=== PATIENT | male | born 1950 | race Caucasian/White ===

== ENCOUNTER 2016-08-13 12:51 | Emergency (ER) | payer SELFPAY ==
--- NOTE | 2016-08-13 14:55 | RAD ---
INDICATION: Left upper extremity numbness COMPARISON: None. TECHNIQUE: Noncontrast axial source images were acquired from the skull base to the vertex. FINDINGS: Ventricles/sulci: The ventricles and cisterns are normal in size and configuration for age. Brain parenchyma: There is no focal parenchymal finding, evidence of intracranial mass, or intracranial mass effect. Intracranial hemorrhage:None. Extra-axial spaces: There are no abnormal extra axial fluid collections or evidence of extra-axial mass. Calvarium: There is no calvarial fracture or other calvarial abnormality. Scalp: There is no evidence of scalp or extracalvarial soft tissue abnormality. Paranasal sinuses/mastoid: The paranasal sinuses and mastoid air cells are clear. Other: None. IMPRESSION: No acute intracranial findings
[2016-08-13 14:58] LABS: Hematocrit 47 % (42-52); Hemoglobin 16.2 g/dl (14.0-18.0); Mean Corpuscular HGB Conc 34 g/dl (31-36); Mean Corpuscular Hemoglobin 31 pg (27-31); Mean Corpuscular Volume 90 fL (80-94); Mean Platelet Volume 9 um3 (7.4-10.4); Red Blood Count 5.25 10^6/ul (4.0-5.4); Red Cell Distribution Width 13 % (10.5-15); White Blood Count 10.1 10^3/ul (3.5-10.8)
--- NOTE | 2016-08-13 14:58 | RAD ---
Indication: Left upper extremity numbness. CT of the cervical spine was obtained in the axial plane. Sagittal and coronal reconstructed images were obtained. The skull base demonstrates no evidence of fracture. Mastoid air cells are well aerated. The C1 ring is intact. Degenerative changes of the atlantoaxial joint is noted. At C2-C3 no disc protrusion is noted. Mild facet arthropathy is noted. No central foraminal stenosis is noted. At C3-C4 there is left facet arthropathy noted. Left uncovertebral joint hypertrophy is noted. No foraminal stenosis is noted. At C4-C5 spondylitic ridge with bilateral uncovertebral joint hypertrophy and bilateral facet arthropathy is noted. No central or foraminal stenosis is noted. At C5-C6 no focal protrusion is noted. No central or foraminal stenosis is noted. At C6-C7 spondylitic ridge flattens the thecal sac. Bilateral uncovertebral hypertrophy narrows both foramen. At C7-T1 degenerative disc disease is noted. Spondylitic ridge flattens the thecal sac. Mild right foraminal stenosis is noted. At C7-T1 degenerative disc disease is noted. IMPRESSION: Multilevel degenerative disc disease without evidence of fracture. No focal protrusion is identified.
[2016-08-13 15:13] LABS: Albumin 4.8 g/dL (3.2-5.2); BUN/Creatinine Ratio 17.6 (8-20); Calcium 9.8 mg/dL (8.6-10.3); EGFR African American 116.7 (>60); EGFR Non-African American 90.7 (>60); Globulin 2.6 g/dL (2-4); Potassium 3.7 mmol/L (3.5-5.0); Total Bilirubin 0.6 mg/dL (0.2-1.0); Total Protein 7.4 g/dL (6.4-8.9)
[2016-08-13 15:51] LABS: HDL Cholesterol 61.2 mg/dL
--- NOTE | 2016-08-13 20:34 | RAD ---
Indication: Numbness in the left arm and left side of the tongue. Image sequences: Sagittal and axial T1, axial T2, FLAIR, diffusion and susceptibility weighted images of the brain were obtained. Ventricular structures are midline. No midline shift is noted. The extra-axial spaces are unremarkable. There is no evidence of intracranial mass or hemorrhage. No other high or low signal lesions are identified. The FLAIR images demonstrates periventricular signal abnormalities consistent with chronic ischemic White matter change. No restriction of diffusion is noted on the diffusion-weighted images. No evidence of residual hemosiderin is noted on the susceptibility weighted images. Mastoid air cells and paranasal sinuses are unremarkable. IMPRESSION: No intracranial mass or hemorrhage is noted. Chronic ischemic White matter change is noted.
--- NOTE | 2016-08-13 20:38 | ED ---
Azar Mota Billy, scribed for Abraham Jenkins MD on 08/13/16 at 1410 . Neurological HPI - HPI Summary HPI Summary: Patient is a 65 year-old male coming to [facility] for evaluation of numbness and tingling in the left arm, lips, and tongue since 1000 today. Denies any other focal neurological deficits such as slurred speech or facial droop. Denies chest pain, shortness of breath, or palpitations. He had a headache several days ago, and he states that he normally does not have headaches. - History of Current Complaint Chief Complaint: EDNeurologicalDeficit Stated Complaint: LT ARM NUMBNESS Time Seen by Provider: 08/13/16 14:04 Hx Obtained From: Patient Onset/Duration: Gradual Onset, Started hours ago Timing: Constant Onset Severity: Moderate Current Severity: Moderate Neurological Deficit Location: Facial, LUE Character: Numbness/Tingling Aggravating: Unknown Alleviating: Unknown Associated Signs and Symptoms: Negative: Weakness, Chest Pain, Shortness of Breath, Palpitations PMH/Surg Hx/FS Hx/Imm Hx Cardiovascular History: Reports: Hx Hypercholesterolemia, Hx Hypertension Respiratory History: Reports: Other Respiratory Problems/Disorders - spontaneous pneumothorax - Surgical History Surgery Procedure, Year, and Place: spontaneus pneumothorax in 1998 Infectious Disease History: No Infectious Disease History: Denies: Traveled Outside the [place] in Last 30 Days - Family History Known Family History: Positive: Cardiac Disease, Other - CVA - Social History Alcohol Use: Occasionally Substance Use Type: Reports: None Smoking Status (MU): Former Smoker Review of Systems Negative: Palpitations, Chest Pain Negative: Shortness Of Breath Musculoskeletal: Other - chronic neck/back pain Positive: Paresthesia, Numbness. Negative: Weakness All Other Systems Reviewed And Are Negative: Yes Physical Exam - Summary Physical Exam Summary: VITAL SIGNS: Reviewed. GENERAL: Patient is a well developed and nourished male who is lying comfortable in the stretcher. Patient is not in any acute respiratory distress. HEAD AND FACE: No signs of trauma. No ecchymosis, hematomas or skull depressions. No sinus tenderness. EYES: PERRLA, EOMI x 2, No injected conjunctiva, no nystagmus. No photophobia. EARS: Hearing grossly intact. Ear canals and tympanic membranes are within normal limits. MOUTH: Oropharynx within normal limits. NECK: Supple, trachea is midline, no adenopathy, no JVD, no carotid bruit, no c- spine tenderness, neck with full ROM. No meningeal signs, no Kernig's or brudzinskis signs. CHEST: Symmetric, no tenderness at palpation LUNGS: Clear to auscultation bilaterally. No wheezing or crackles. CVS: Regular rate and rhythm, S1 and S2 present, no murmurs or gallops appreciated. ABDOMEN: Soft, non-tender. No signs of distention. No rebound no guarding, and no masses palpated. Bowel sounds are normal. EXTREMITIES: FROM in all major joints, no edema, no cyanosis or clubbing. NEURO: Alert and oriented x 3. No acute neurological deficits. Speech is normal and follows commands. SKIN: Dry and warm Triage Information Reviewed: Yes Vital Signs On Initial Exam: Initial Vitals Temp Pulse Resp BP Pulse Ox 97.8 F 80 20 184/100 100 08/13/16 12:53 08/13/16 12:53 08/13/16 12:53 08/13/16 12:53 08/13/16 12:53 Vital Signs Reviewed: Yes Diagnostics - Vital Signs Vital Signs Temp Pulse Resp BP Pulse Ox 08/13/16 12:59 98.2 F 70 20 184/100 100 08/13/16 12:53 97.8 F 80 20 184/100 100 - Laboratory Lab Results: Lab Results 08/13/16 08/13/16 08/13/16 Range/Units 14:50 14:50 14:50 WBC 10.1 (3.5-10.8) 10^3/ul RBC 5.25 (4.0-5.4) 10^6/ul Hgb 16.2 (14.0-18.0) g/dl Hct 47 (42-52) % MCV 90 (80-94) fL MCH 31 (27-31) pg MCHC 34 (31-36) g/dl RDW 13 (10.5-15) % Plt Count 235 (150-450) 10^3/ul MPV 9 (7.4-10.4) um3 Neut % (Auto) 68.9 (38-83) % Lymph % (Auto) 18.4 L (25-47) % [place] % (Auto) 8.8 (1-9) % Eos % (Auto) 2.8 (0-6) % Baso % (Auto) 1.1 (0-2) % Absolute Neuts (auto) 6.9 (1.5-7.7) 10^3/ul Absolute Lymphs (auto) 1.9 (1.0-4.8) 10^3/ul Absolute Monos (auto) 0.9 H (0-0.8) 10^3/ul Absolute Eos (auto) 0.3 (0-0.6) 10^3/ul Absolute Basos (auto) 0.1 (0-0.2) 10^3/ul Absolute Nucleated RBC 0.01 10^3/ul Nucleated RBC % 0 INR (Anticoag Therapy) 0.95 (0.89-1.11) Sodium 134 (133-145) mmol/L Potassium 3.7 (3.5-5.0) mmol/L Chloride 100 L (101-111) mmol/L Carbon Dioxide 26 (22-32) mmol/L Anion Gap 8 (2-11) mmol/L BUN 15 (6-24) mg/dL Creatinine 0.85 (0.67-1.17) mg/dL Est GFR ( Amer) 116.7 (>60) Est GFR (Non-Af Amer) 90.7 (>60) BUN/Creatinine Ratio 17.6 (8-20) Glucose 101 H (70-100) mg/dL Lactic Acid (0.5-2.0) mmol/L Calcium 9.8 (8.6-10.3) mg/dL Total Bilirubin 0.60 (0.2-1.0) mg/dL AST 64 H (13-39) U/L ALT 89 H (7-52) U/L Alkaline Phosphatase 74 (34-104) U/L Troponin I 0.00 (<0.04) ng/mL Total Protein 7.4 (6.4-8.9) g/dL Albumin 4.8 (3.2-5.2) g/dL Globulin 2.6 (2-4) g/dL Albumin/Globulin Ratio 1.8 (1-3) / Range/Units 14:50 WBC (3.5-10.8) 10^3/ul RBC (4.0-5.4) 10^6/ul Hgb (14.0-18.0) g/dl Hct (42-52) % MCV (80-94) fL MCH (27-31) pg MCHC (31-36) g/dl RDW (10.5-15) % Plt Count (150-450) 10^3/ul MPV (7.4-10.4) um3 Neut % (Auto) (38-83) % Lymph % (Auto) (25-47) % [place] % (Auto) (1-9) % Eos % (Auto) (0-6) % Baso % (Auto) (0-2) % Absolute Neuts (auto) (1.5-7.7) 10^3/ul Absolute Lymphs (auto) (1.0-4.8) 10^3/ul Absolute Monos (auto) (0-0.8) 10^3/ul Absolute Eos (auto) (0-0.6) 10^3/ul Absolute Basos (auto) (0-0.2) 10^3/ul Absolute Nucleated RBC 10^3/ul Nucleated RBC % INR (Anticoag Therapy) (0.89-1.11) Sodium (133-145) mmol/L Potassium (3.5-5.0) mmol/L Chloride (101-111) mmol/L Carbon Dioxide (22-32) mmol/L Anion Gap (2-11) mmol/L BUN (6-24) mg/dL Creatinine (0.67-1.17) mg/dL Est GFR ( Amer) (>60) Est GFR (Non-Af Amer) (>60) BUN/Creatinine Ratio (8-20) Glucose (70-100) mg/dL Lactic Acid 0.7 (0.5-2.0) mmol/L Calcium (8.6-10.3) mg/dL Total Bilirubin (0.2-1.0) mg/dL AST (13-39) U/L ALT (7-52) U/L Alkaline Phosphatase (34-104) U/L Troponin I (<0.04) ng/mL Total Protein (6.4-8.9) g/dL Albumin (3.2-5.2) g/dL Globulin (2-4) g/dL Albumin/Globulin Ratio (1-3) Result Diagrams: 08/13/16 14:50 08/13/16 14:50 Lab Statement: Any lab studies that have been ordered have been reviewed, and results considered in the medical decision making process. - CT Brain CT Interpretation: No Acute Changes CT Interpretation Completed By: Radiologist Cervical Spine CT Interpretation Completed By: Radiologist - Multilevel degenerative disc disease without evidence of fracture. No focal protrusion is identified. - EKG 1537 EKG Interpretation: NSR 64 bpm, no STEMI Course/Dx - Course Assessment/Plan: Patient is a 65 year-old male coming to [facility] for evaluation of numbness and tingling in the left arm, lips, and tongue since 1000 today. Denies any other focal neurological deficits such as slurred speech or facial droop. Denies chest pain, shortness of breath, or palpitations. He had a headache several days ago, and he states that he normally does not have headaches. Bloodwork WNL except for glucose of 101 and slightly increased LFTs. CT brain shows no acute intracranial pathology. Cervical spine CT shows no acute pathology. I discussed these findings with Dr. Up (neurology) who recommends an MRI of the brain without contrast. If the MRI is negative, the patient can be discharged home. Otherwise, we will call Dr. Up back. He is hemodynamically stable, A&Ox3. His symptoms have not improved or worsened. At this point, the patient is awaiting the MRI imaging comfortably, therefore he will be signed out to Dr. Middleton at shift change to follow up on the MRI results and for further workup and disposition. - Differential Dx Differential Diagnoses Neuro: Positive: Cerebrovascular Accident, Transient Ischemic Attack - Diagnoses Provider Diagnoses: Paresthesias - Physician Notifications Discussed Care of Patient With: Dr. Up (neurology) at 1700: recommends brain MRI without contrast. Discharge - Discharge Plan Condition: Stable Disposition: OTHER Discharge Disposition Comment: Signed out to Dr. Middleton pending MRI results. Referrals: Abraham Valencia DO [Primary Care Provider] - The documentation as recorded by the Azar madera Billy accurately reflects the service I personally performed and the decisions made by me, Abraham Jenkins MD.
[2016-08-13 22:06] VITALS: BP 147/84
--- NOTE | 2016-08-14 01:36 | ED ---
I, Rajeev Catherine, scribed for Andi Middleton MD on 08/13/16 at 204 . Progress - Progress Note Progress Note: Pt denies SOB, CP, or diaphoresis. - Results/Orders Results/Orders: Brain MRI - IMPRESSION: No intracranial mass or hemorrhage is noted. Chronic ischemic White matter change is noted. - EKG/XRAY/CT CT: Brain MRI - See note Re-Evaluation - Re-Evaluation First Eval Re-Evaluation Time: 21:04 Change: Improved Comment: Pt tongue numbness lasted for 30 minutes and hand numbness lasted longer. Numbness resolving but left thumb is still numb which is unusual for him. Course/Dx - Course Course Of Treatment: No CP, SOB, or diaphoresis. No angina or equivalent disease noticed. Pt is hypertensive and symptoms could be related to hypertension. Will discharge pt with instructions to check BP 3 times a day and FU with PCP tuesday. - Diagnoses Provider Diagnoses: Paresthesias, HTN (hypertension) - Provider Notifications Discussed Care Of Patient With: Dr. Up (neurology) at 1700: recommends brain MRI without contrast. Dr. Up (neurology) at 2107: discussed TIA workup. Dr Up expressed unlikelihood of TIA given isolated tongue numbness and hand numbness is chronic. The documentation as recorded by the Florin madera Alok accurately reflects the service I personally performed and the decisions made by me, Andi Middleton MD.
== END 2016-08-13 22:07 ==
LOC: ED 12:51
DX: R20.9 Unspecified disturbances of skin sensation (principal); I10 Essential (primary) hypertension; E78.00 Pure hypercholesterolemia, unspecified; Z87.891 Personal history of nicotine dependence
CPT/HCPCS: 36415; 70450; 70551; 72125; 80053; 80061; 83605; 84484; 85025; 85610; 93005; 99282

== ENCOUNTER 2019-07-09 16:45 | Observation (INO) | payer MEDICARE ==
--- NOTE | 2019-07-09 17:03 | ED ---
HPI Chest Pain - HPI Summary HPI Summary: 68 y/o M with hx hypertension and hypercholestrolemia presenting [facility] c/o episodes of burning pain in his upper chest and exertional dyspnea since March 2019. Had an appointment with Dr. Salmeron PCP in December 2018 which was normal. Had influenza vaccination then. In Mar, patient developed burning upper chest pain and dyspnea while riding bicycle which he states is abnormal. He has ridden bike for 15 years with no problems. Last year he had stopped riding for a few months then resumed in Mar and noticed that he was unable to ride his usual 15 miles in 30 minutes due to the pain and dyspnea. He states it takes him longer to ride 15 miles. He stopped exercising this week because he cannot tolerate it anymore. Symptoms go away when he isn't exerting himself. He denies nausea, diaphoresis, swelling or pain in legs, fever. No chest pain currently. 0 /10 pain now. No DVT or PE. No recent long distance travel. Had virtual appointment with his PCP a few weeks ago, was told he had unstable angina, started on metoprolol which he thinks has worsened his symptoms, and was recommended to go to the ER for cardiac workup. Last stress test long time ago with Dr. Streeter. Medications reviewed. On aspirin 324 mg. Took it today. Allergies noted. Surgical hx: spontaneous pneumothorax 1998. FHx [facility] older brother. Drinks ETOH daily. Consumes 4-5 shots [place] every day. Occasional marijuana. Former smoker. Quit 30 years ago. - History of Current Complaint Chief Complaint: EDGeneral Time Seen by Provider: 07/09/19 16:55 Hx Obtained From: Patient Onset/Duration: Started Weeks Ago - Mar 2019, Still Present Timing: Intermittent Current Severity: None Pain Intensity: 0 Pain Scale Used: 0-10 Numeric Character: Burning Aggravating Factor(s): Exertion, Other: - metoprolol Alleviating Factor(s): Rest Associated Signs and Symptoms: Positive: Negative - nausea, diaphoresis, swelling or pain in legs, fever - Allergy/Home Medications Allergies/Adverse Reactions: Allergies Allergy/AdvReac Type Severity Reaction Status Date / Time Penicillins Allergy Numbness Verified 07/09/19 16:53 And Tingling Home Medications: Home Medications Aspirin EC TAB* [Ecotrin EC Low Dose 81 MG*] 81 mg PO DAILY 07/09/19 [History Confirmed 07/09/19] Atorvastatin* [Lipitor*] 20 mg PO DAILY 07/09/19 [History Confirmed 07/09/19] Chlorthalidone TAB* [Hygroton TAB*] 12.5 mg PO QAM 07/09/19 [History Confirmed 07/09/19] Metoprolol Succinate XL TAB* [Toprol XL TAB*] 50 mg PO QAM 07/09/19 [History Confirmed 07/09/19] Ramipril CAP* [Altace CAP*] 10 mg PO DAILY 07/09/19 [History Confirmed 07/09/19] PMH/Surg Hx/FS Hx/Imm Hx Cardiovascular History: Reports: Hx Hypercholesterolemia, Hx Hypertension Respiratory History: Reports: Other Respiratory Problems/Disorders - spontaneous pneumothorax Sensory History: Reports: Hx Contacts or Glasses Opthamlomology History: Reports: Hx Contacts or Glasses Psychiatric History: Denies: Hx Panic Disorder - Surgical History Surgery Procedure, Year, and Place: spontaneus pneumothorax in 1998 Infectious Disease History: No Infectious Disease History: Denies: Traveled Outside the [place] in Last 30 Days - Family History Known Family History: Positive: Cardiac Disease - [facility] older brother, Other - CVA - Social History Alcohol Use: Daily Alcohol Amount: 4-5 shots [place] Substance Use Type: Reports: None Hx Tobacco Use: Yes Smoking Status (MU): Former Smoker - Quit 30 years ago Review of Systems Negative: Fever, Skin Diaphoresis Positive: Chest Pain Positive: Other - exertional dyspnea Negative: Nausea Musculoskeletal: Negative - swelling or pain in legs All Other Systems Reviewed And Are Negative: Yes Physical Exam - Summary Physical Exam Summary: Constitutional: Well-developed, Well-nourished, Alert. (-) Distressed Skin: Warm, Dry HENT: Normocephalic; Atraumatic Eyes: Conjunctiva normal Neck: Musculoskeletal ROM normal neck. (-) JVD, (-) Stridor, (-) Tracheal deviation Cardio: Rhythm regular, rate normal, Heart sounds normal; Intact distal pulses; Radial pulses are 2+ and symmetric. (-) Murmur Pulmonary/Chest wall: Effort normal. (-) Respiratory distress, (-) Wheezes, (-) Rales Abd: Soft, (-) tenderness, (-) Distension, (-) Guarding, (-) Rebound Musculoskeletal: (-) Edema Lymph: (-) Cervical adenopathy Neuro: Alert, Oriented x3 Psych: Mood and affect Normal Triage Information Reviewed: Yes Vital Signs On Initial Exam: Initial Vitals Temp Pulse Resp BP Pulse Ox 98.0 F 75 19 185/97 96 07/09/19 16:48 07/09/19 16:48 07/09/19 16:48 07/09/19 16:48 07/09/19 16:48 Vital Signs Reviewed: Yes Procedures - Sedation Patient Received Moderate/Deep Sedation with Procedure: No Diagnostics - Vital Signs Vital Signs Temp Pulse Resp BP Pulse Ox 07/09/19 16:48 98.0 F 75 19 185/97 96 - Laboratory Result Diagrams: 07/09/19 17:30 07/09/19 17:30 Lab Statement: Any lab studies that have been ordered have been reviewed, and results considered in the medical decision making process. - Radiology CXR Radiology Interpretation Completed By: ED Physician - No acute process. Pending official report. - EKG 1703 Summary of EKG Findings: Q wave in 3. T wave inversion in aVF. ED physician has reviewed and interpreted this EKG. Chest Pain Course/Dx - Course Course Of Treatment: Patient is here with worsening exertional dyspnea since March. Patient's symptoms have become much more severe this week. Patient has a decreased exercise tolerance and has chest pain with exercise. Patient has not had a stress test in many years. Patient had an EKG which showed T- wave inversion and Q-wave in 3 which is not new. Patient had blood work performed which was grossly unremarkable. Patient had negative chest x-ray. Given patient's heart score of 7, patient was admitted to the hospital for stress test. Patient took a full dose aspirin at home today - Diagnoses Provider Diagnoses: Exertional dyspnea, Chest pain - Provider Notifications Discussed Care Of Patient With: Poncho Sumner - Agrees to admit Time Discussed With Above Provider: 18:22 Discharge ED - Sign-Out/Discharge Documenting (check all that apply): Patient Departure - Discharge Plan Condition: Stable Disposition: ADMITTED TO [facility] Referrals: Ryan Salmeron MD [Primary Care Provider] - - Billing Disposition and Condition Condition: STABLE Disposition: Admitted to [facility] - Attestation Statements Document Initiated by Scribe: Yes Documenting Scribe: Leatha Thorpe Provider For Whom Scribe is Documenting (Include Credential): Miles Andrea MD Scribe Attestation: I, Leatha Thorpe, scribed for Miles Andrea MD on 07/09/19 at 1922. Scribe Documentation Reviewed: Yes Provider Attestation: The documentation as recorded by the scribeLeatha accurately reflects the service I personally performed and the decisions made by me, Miles Andrea MD Status of Scribe Document: Viewed
--- OUTSIDE RECORDS SUMMARY | 2019-07-09 17:26 | XMS REPORT | Continuity of Care Document ---
:1950 External Reference #:[id number] Author Name Ryan Salmeron M.D. (transmitted by agent of provider Teagan Anand) Address [address] [facility] [address] [place] [address] Care Team Providers Name Role Phone HCP given Care Team Information Drug Discovery Informatics Specialist Unavailable [facility] - Care Team Information Drug Discovery Informatics Specialist [phone] Gastroenterology Problems Active Problems Provider Date Pure hypercholesterolemia Ryan Salmeron M.D. Onset: 02/08/2011 Benign essential hypertension Ryan Salmeron M.D. Onset: 03/10/2011 Degenerative joint disease involving multiple Ryan Salmeron M.D. Onset: joints Impaired fasting glycemia Ryan Salmeron M.D. Onset: 03/10/2011 Localized, primary osteoarthritis of the Ryan Salmeron M.D. Onset: 2019 pelvic region and thigh Social History Type Date Description Comments Sex Unknown Tobacco Use Start: Unknown End: Former Cigarette quit ~age 41 Unknown Smoker Smoking Status Reviewed: 12/26/18 Former Cigarette quit ~age 41 Smoker ETOH Use Current Alcohol Use: 3-4 drinks/d; Daily counseled to dec 02/08/11 Recreational Drug Use 06/27/2019 Denies Drug Use has used MJ ocasionall,y none in the past couple of months Exercise Type/Frequency Exercises rides bike 30min/d, skis, cuts own firewood Allergies, Adverse Reactions, Alerts Active Allergies Reaction Severity Comments Date Penicillins tingling in hands (after tolerating it 02/08/2011 many times prior) Medications Active Medications SIG Qnty Indications Ordering Date Provider Metoprolol Succinate 1 by mouth every 30tabs R07.9 Davion Salmeron/01/2020 ER morning for Josef Davis 50mg Tablets ER 24HR suspected angina Tylenol 8 Hour 2 tablets 3x/day M25.552 Silco, 12/26/2018 Arthritis Pain for left hip pain Josef Davis 650mg Tablets ER Shingrix administer 2 doses 2units Z23 Silcoff, 06/26/2018 50mcg/0.5ML as directed, per Josef Davis Suspension Rec cdc guidelines Chlorthalidone Take 1/2 Tablet By 45tabs I10 Silcoolvin, 08/18/2016 25mg Mouth Every Josef Davis Tablets Morning For High Blood Pressure Hydrocodone-Acetamino 1 by mouth every 4 200tabs M15.0 Silcoff, 12/10/2013 phen hours as needed Josef Davis 7.5-325mg Tablets for pain; code D Ramipril take 1 capsule by 90caps I10 Silcoolvin, 12/13/2012 10mg Capsules mouth every day Josef Davis for high blood pressure Atorvastatin Calcium take 1 tablet by 90tabs E78.00 Silcoff, 12/08/2011 mouth every day Josef Davis 20mg Tablets for high cholesterol Aspirin 1 by mouth every E78.0 Unknown 02/05/2011 325mg Tablets day Immunizations CPT Code Status Date Vaccine Lot # [id number] Given 12/27/2018 Influenza Vaccine, Inactivated, Subunit, Adjuvanted, For [facility] [address]259 Given 06/26/2018 Pneumococcal Immunization [id number] 26927 Given 12/26/2017 Influenza Vaccine, Inactivated, Subunit, [id number] Adjuvanted, For [facility] [address]40 Given 06/08/2017 Prevnar 13 [id number] 31871 Given 12/08/2016 Influenza Virus Vaccine, Quadrivalent, Split, [id number] Preservative Free [id number] Given 05/20/2015 Zostavax [id number] 81755 Given 03/19/2014 Flu, Split Virus 3Yrs [id number] 14164 Given 12/13/2012 Flu, Split Virus 3Yrs [id number] 91807 Given 02/08/2011 Adacel or Boostrix, TDaP [id number] Refused 03/10/2011 Flu, Split Virus 3Yrs Vital Signs Date Vital Result Comment 06/27/2019 10:56am BP Systolic 167 mmHg BP Diastolic 90 mmHg BP Systolic Recheck 164 mmHg BP Diastolic Recheck 87 mmHg Heart Rate 87 /min Weight 180.00 lb per pt 12/26/2018 1:38pm BP Systolic 130 mmHg BP Diastolic 70 mmHg Height 67 inches 5'7" Weight 176.00 lb BMI (Body Mass Index) 27.6 kg/m2 Results Test Acquired Date Facility Test Result H/L Range Note Basic Metabolic 06/06/2019 [facility] Sodium 136 mmol/L Normal 135- 145 Panel [phone] Potassium 4.1 mmol/L Normal 3.5-5.0 Chloride 98 mmol/L Low 101-111 Co2 Carbon Dioxide 30 mmol/L Normal 22-32 Anion Gap 8 mmol/L Normal 2-11 Glucose 125 mg/dL High 70-100 Blood Urea Nitrogen 18 mg/dL Normal 6-24 Creatinine 1.02 mg/dL Normal 0.67-1.17 BUN/Creatinine Ratio 17.6 Normal 8-20 Calcium 10.1 mg/dL Normal 8.6-10.3 Egfr Non- 72.8 >60 Egfr 88.1 >60 1 Laboratory test finding 06/06/2019 [facility] Alt 60 U/L High 7-52 2 [phone] Lipid Profile 06/06/2019 [facility] Triglycerides 208 mg/dL 3 (Trig/Chol/HDL) [phone] Cholesterol 219 mg/dL 4 HDL Cholesterol 61.2 mg/dL 5 LDL Cholesterol 116 mg/dL 6 1 Because ethnic data is not always readily available, this report includes an eGFR for both -Americans and non- Americans. The National Kidney Disease Education Program (NKDEP) does not endorse the use of the MDRD equation for patients that are not between the ages of 18 and 70, are , have extremes of body size, muscle mass, or nutritional status, or are non- or non-. According to the National Kidney Foundation, irrespective of diagnosis, the stage of the disease is based on the level of kidney function: Stage Description GFR(mL/min/1.73 m(2)) 1 Kidney damage with normal or decreased GFR 90 2 Kidney damage with mild decrease in GFR 60-89 3 Moderate decrease in GFR 30-59 4 Severe decrease in GFR 15-29 5 Kidney failure <15 (or dialysis) 2 FASTING 12 HOUR 3 Desirable: <150 Borderline High: 150-199 High: 200-499 Very High: >500 4 Desirable: <200 Borderline High: 200-239 High: >239 5 Low: <40 Desirable: 40-60 High: >60 6 Desirable: <100 Near Optimal: 100-129 Borderline High: 130-159 High: 160-189 Very High: >189 Procedures Date Code Description Status 11/26/2014 66069952 Colonoscopy Completed Medical Devices Description No Information Available Encounters Type Date Location Provider Dx Diagnosis Office Visit 06/27/2019 Main Office Ryan Salmeron, R73.01 Impaired fasting 1:45p M.DVictorino glucose I10 Essential (primary) hypertension E78.00 Pure hypercholesterolemia, unspecified M15.0 Primary generalized (osteo)arthritis M16.12 Unilateral primary osteoarthritis, left hip R07.9 Chest pain, unspecified Assessments Date Code Description Provider 06/27/2019 R73.01 Impaired fasting glucose Ryan Salmeron M.D. 06/27/2019 I10 Essential (primary) hypertension Ryan Salmeron M.D. 06/27/2019 E78.00 Pure hypercholesterolemia, unspecified Ryan Salmeron M.D. 06/27/2019 M15.0 Primary generalized (osteo)arthritis Ryan Salmeron M.D. 06/27/2019 M16.12 Unilateral primary osteoarthritis, left hip Ryan Salmeron M.D. 06/27/2019 R07.9 Chest pain, unspecified Ryan Salmeron M.D. Plan of Treatment Future Appointment(s):12/31/2019 2:00 pm - Ryan Salmeron M.D. at Main [id number]/27/2019 - Ryan Salmeron M.D.R73.01 Impaired fasting tuhlveeI27 Essential (primary) hypertensionComments:BudytxxviiQ98.00 Pure hypercholesterolemia, gnmhllspmfdF36.0 Primary generalized (osteo) vtvdkzdwkS00.12 Unilateral primary osteoarthritis, left hipR07.9 Chest pain, unspecifiedNew Medication:Metoprolol Succinate ER 50 mg - 1 by mouth every morning for suspected anginaComments:Suspicious for stable angina. Discussed starting an antianginal, reviewed NTG vs b-anayeli. He prefers trying a b- anayeli. He will monitor BP and HR, am and pm, and send a note over the portal in abouta week w/ update on Sxs as well as BP/HR adn we will go from there. Functional Status Description No Information Available Mental Status Description No Information Available Referrals Description No Information Available
--- OUTSIDE RECORDS SUMMARY | 2019-07-09 17:26 | XMS REPORT | Continuity of Care Document ---
:1950 External Reference #:[id number] Author Name Ryan Salmeron M.D. (transmitted by agent of provider Milagro Dickens) Address [address] [facility] [address] [place] [address] Care Team Providers Name Role Phone HCP given Care Team Information Wood Handler Unavailable [facility] - Care Team Information Wood Handler [phone] Gastroenterology Problems Active Problems Provider Date Pure [...] Ramipril take 1 capsule by 90caps I10 Silcoolivn, 12/13/2012 10mg Capsules mouth every day Josef Davis for high blood pressure Atorvastatin Calcium take 1 tablet by 90tabs E78.00 Silcoff, 12/08/2011 mouth every day Josef Davis 20mg Tablets for high cholesterol Aspirin 1 by mouth every E78.0 Unknown 02/05/2011 325mg Tablets day Immunizations CPT Code Status Date Vaccine Lot # [id number] Given 12/27/2018 Influenza Vaccine, Inactivated, Subunit, Adjuvanted, For [facility] [address] Given 06/26/2018 Pneumococcal Immunization [id number] 21048 Given 12/26/2017 Influenza Vaccine, Inactivated, Subunit, [id number] Adjuvanted, For [facility] [address] Given 06/08/2017 Prevnar 13 [id number] 48729 Given 12/08/2016 Influenza Virus Vaccine, Quadrivalent, Split, [id number] Preservative Free 06174 Given 05/20/2015 Zostavax [id number] 23088 Given 03/19/2014 Flu, Split Virus 3Yrs [id number] 63715 Given 12/13/2012 Flu, Split Virus 3Yrs [id number] 55952 Given 02/08/2011 Adacel or Boostrix, TDaP [id number] 23612 Refused 03/10/2011 Flu, Split Virus 3Yrs Vital [...] Result H/L Range Note Basic Metabolic 06/06/2019 [facility] Sodium 136 mmol/L Normal 135- 145 Panel [phone] Potassium 4.1 mmol/L Normal 3.5-5.0 Chloride 98 mmol/L Low 101-111 Co2 Carbon Dioxide 30 mmol/L Normal 22-32 Anion Gap 8 mmol/L Normal 2-11 Glucose 125 mg/dL High 70-100 Blood Urea Nitrogen 18 mg/dL Normal 6-24 Creatinine 1.02 mg/dL Normal 0.67-1.17 BUN/Creatinine Ratio 17.6 Normal 8-20 Calcium 10.1 mg/dL Normal 8.6-10.3 Egfr Non- 72.8 >60 Egfr 88.1 >60 1 Laboratory test finding 06/06/2019 [facility] Alt 60 U/L High 7-52 2 [phone] Lipid Profile 06/06/2019 [facility] Triglycerides 208 mg/dL 3 (Trig/Chol/HDL) [phone] Cholesterol 219 mg/dL 4 HDL Cholesterol 61.2 [...] >189 Procedures Date Code Description Status 11/26/2014 [id number] Colonoscopy Completed Medical Devices Description No Information Available Encounters Type Date Location Provider Dx Diagnosis Office Visit 06/27/2019 Main Office Ryan Salmeron, R73.01 Impaired fasting 1:45p M.D. glucose I10 Essential (primary) hypertension E78.00 Pure hypercholesterolemia, unspecified M15.0 Primary generalized (osteo)arthritis R07.9 Chest pain, unspecified Assessments Date Code Description Provider 06/27/2019 R73.01 Impaired fasting glucose Ryan Salmeron M.D. 06/27/2019 I10 Essential (primary) hypertension Ryan Salmeron M.D. 06/27/2019 E78.00 Pure hypercholesterolemia, unspecified Ryan Salmeron M.D. 06/27/2019 M15.0 Primary generalized (osteo)arthritis Ryan Salmeron M.D. 06/27/2019 R07.9 Chest pain, unspecified Ryan Salmeron M.D. Plan of Treatment Future Appointment(s):12/31/2019 2:00 pm - Ryan Salmeron M.D. at Main [id number]/27/2019 - Ryan Salmeron M.D.R73.01 Impaired fasting smjxcvfE60 Essential (primary) hypertensionComments:FycjvwohebK83.00 Pure hypercholesterolemia, avkikzevgmvJ19.0 Primary generalized (osteo) tzfzdzgeyW81.9 Chest pain, unspecifiedNew Medication:Metoprolol Succinate ER 50 mg - 1 by mouth every morning for suspected anginaComments:Suspicious for stable angina. Discussed starting an antianginal, reviewed NTG vs b-anayeli. He prefers trying a b-anayeli. He will monitor BP and HR, am and pm, and send a note over the portal in abouta week w/ update on Sxs as well as BP/HR adn we will go from there. Functional Status Description No Information Available Mental Status Description No Information Available Referrals Description No Information Available
[2019-07-09 17:57] LABS: ABS Basophils 0.1 10^3/ul (0-0.2); ABS Eosinophils 0.4 10^3/ul (0-0.6); ABS Lymphocytes 1.8 10^3/ul (1.0-4.8); ABS Monocytes 0.8 10^3/ul (0-0.8); ABS Neutrophils 4.5 10^3/ul (1.5-7.7); Eosinophil % 5.1 %; Hematocrit 45 % (42-52); Hemoglobin 16.2 g/dL (14.0-18.0); Mean Corpuscular HGB Conc 37 g/dL (31-36); Mean Corpuscular Hemoglobin 32 pg (27-31); Mean Corpuscular Volume 87 fL (80-94); Platelet Count 244 10^3/uL (150-450); Red Blood Count 5.12 10^6 /uL (4.18-5.48); Red Cell Distribution Width 13 % (10-15); White Blood Count 7.6 10^3/uL (3.5-10.8)
[2019-07-09 18:05] LABS: Albumin 4.7 g/dL (3.2-5.2); Albumin/Globulin Ratio 1.9 (1-3); BUN/Creatinine Ratio 16.7 (8-20); Calcium 9.9 mg/dL (8.6-10.3); EGFR African American 101.8 (>60); EGFR Non-African American 84.2 (>60); Globulin 2.5 g/dL (2-4); Potassium 3.5 mmol/L (3.5-5.0); Total Bilirubin 0.6 mg/dL (0.2-1.0); Total Protein 7.2 g/dL (6.4-8.9); Troponin I 0.01 ng/mL (<0.03)
[2019-07-09 19:53] LABS: HDL Cholesterol 61.8 mg/dL
[2019-07-09] MEDS ORDERED: Ondansetron INJ* 2 MG/ML VIAL IV PRN (20:14)
[2019-07-09] MEDS ORDERED: Acetaminophen TAB* 325 MG PO PRN (20:14)
[2019-07-09] MEDS: Heparin VIAL(*) 5000 UNITS/ML VIAL (FIVE THOUSAND) SUBCUT SCH (23:12)
--- NOTE | 2019-07-09 23:50 | HP ---
ADMISSION HISTORY AND PHYSICAL: DATE OF ADMISSION: 07/09/19 PRIMARY CARE PHYSICIAN: Dr. Salmeron. PROVIDER: Candi Rodriguez NP ATTENDING PHYSICIAN: Dr. Vazquez* (dictated by Candi Rodriguez NP). OTHER PROVIDER: Dr. Javier. CHIEF COMPLAINT: Chest pain and dyspnea. HISTORY OF PRESENT ILLNESS: This is a 68-year-old male with a past medical history significant for hypertension, hyperlipidemia, spontaneous pneumothorax, who came to the emergency room on 07/09/19 for worsening chest pain with exercise and shortness of breath. He had had similar symptoms in 2005 and undergone a stress test at that time that had no significant findings, and then starting in March of this year, he was riding his exercise bike, which he can typically do 15 miles in 30 minutes and has been doing so far for about 15 years , though at that time in March, he suddenly developed a burning pain in his upper chest along with shortness of breath that improved with rest. He states that this has been happening every time he gets on the exercise bike. Denies any nausea, vomiting, or swelling or leg pain. He stated that around 7 to 10 days ago, the shortness of breath got worse and the pain became more quickly with exercise and he was unable to perform his usual amount on his exercise bike and 3 days ago, it got even worse to the point where he was unable to walk around the house without developing symptoms. He stated that he never developed the chest pain or shortness of breath at absolute rest. Around 1 week ago when his shortness of breath started to worsen, he had a telemedicine conference with Dr. Salmeron who started him on metoprolol and was told at that time that he had stable angina, though he stated the metoprolol did not seem to help his symptoms and he spoke with Dr. Salmeron again this morning who suggests that he go to the emergency room. In the emergency room, EKG was taken, which showed new inferior wall ischemic changes. Chest x-ray was done. Labs were drawn. Troponin was negative 0.01. Hospitalists were asked to evaluate the patient for admission. During my assessment, he denied any chest pain or shortness of breath. PAST MEDICAL HISTORY: Hypertension, hyperlipidemia, spontaneous pneumothorax, recurrent sinus infections, and arthritis. PAST SURGICAL HISTORY: He had a septoplasty and sinus surgery in 2002. He had a right lung resection for blebs in the and a lower jaw surgery in 1983. HOME MEDICATIONS: 1. Atorvastatin 20 mg p.o. daily. 2. Aspirin 325 mg p.o. daily. 3. Ramipril 10 mg p.o. daily. 4. Chlorthalidone 12.5 mg p.o. q.a.m. 5. Metoprolol succinate 50 mg p.o. q.a.m. ALLERGIES: To PENICILLIN. FAMILY HISTORY: His older brother had an OH at age 47. His younger brother had an OH at age 52. Mother passed from a stroke. Father is passed; he had a history of bronchitis. SOCIAL HISTORY: He drinks 4 to 5 shots of bourbon daily. He states that he has gone up to 3 days without drinking without any shaking hallucinations, nausea, vomiting, or any other signs of withdrawal. He quit smoking tobacco 30 years ago and he occasionally smokes cannabis. REVIEW OF SYSTEMS: A 12-point system review was performed. All pertinent positives and negatives are in the HPI. PHYSICAL EXAMINATION GENERAL: This is a well-developed gentleman seen resting in the bed in no acute distress. VITAL SIGNS: Temperature is 98.0 Fahrenheit, 76 pulse, 14 respirations, 94% oxygen on room air, and 136/88 blood pressure. HEENT: Conjunctivae pink and moist. PERRLA. EOMs intact. Oropharynx is clear. Mucous membranes are moist. NECK: Supple. RESPIRATORY: Lungs sounds clear throughout bilaterally on room air. CARDIAC: S1, S2 present. Heart rate regular. No murmurs, gallops, or rubs appreciated. Negative for carotid bruits. ABDOMEN: Soft, nontender, and nondistended with positive bowel sounds x4. MUSCULOSKELETAL: No clubbing or cyanosis of the digits. SKIN: There are no rashes or open areas appreciated. NEURO: He has got decreased sensation to bilateral hands and feet. Otherwise, no other focal deficits appreciated. PSYCH: He is alert and oriented x4. Thought content organized. SKIN: No open areas or rashes appreciated. DIAGNOSTIC STUDIES/LAB DATA: Chest x-ray, still awaiting official radiologic read; however, there does not appear to be any acute cardiopulmonary process. Pertinent lab data: Sodium 134, chloride 97, AST 40, ALT 54. Troponin 0.01 that was 0.00 upon repeat. B-natriuretic peptide of 22. Triglycerides 284, cholesterol 193, LDL cholesterol 74, HDL cholesterol 61.8, and awaiting hemoglobin A1c. ASSESSMENT AND PLAN: My impression is that this is a 68-year-old male with a past medical history significant for hypertension, hyperlipidemia, and spontaneous pneumothorax who is being admitted for chest pain with ischemic changes in the inferior wall on his EKG. 1. Chest pain. The patient has a fairly convincing classic history of chest pain with exertion and dyspnea that has been continuing to worsen, even though his troponins are negative. There are T-wave inversions in the inferior wall that were not present on an EKG done [address] Javier was consulted and asked that the patient be made n.p.o. after midnight. He will make a decision in the morning whether or not the patient will undergo a stress test or if he requires a catheterization. Transthoracic echocardiogram and an additional 12- lead EKG was ordered for the morning. The patient will be kept on telemetry throughout the night. Still awaiting hemoglobin A1c results as his last one in the system from 2017 was 6.3. He states that Dr. Salmeron watches his hemoglobin A1c and it has never been officially diagnosed with diabetes. He states that he has been taking atorvastatin for some time but any time they increased the dosing, he develops elevated liver enzymes and so therefore can only tolerate statin at the 20 mg dosing. The patient takes 325 of aspirin once a day, which he had this morning and will continue for tomorrow. We will hold his metoprolol, which was started 1 week prior until after Dr. Javier sees the patient. 2. Hypertension. He had brought in a log of his blood pressures over the past month. They typically run between one teens and 120s. He is under good control. We will continue the ramipril and chlorthalidone. 3. Hyperlipidemia. Continue atorvastatin. He is almost at the goal LDL of 70. We would encourage lifestyle changes of decreasing alcohol intake. The patient also admits to eating greasy fatty foods late at night if he smokes cannabis earlier in the evening and so therefore he states that he smokes it later at night so that he goes directly to sleep and avoids eating these foods. 4. DVT prophylaxis. Heparin subcutaneously. 5. Code status is full code. DISPOSITION: To admit OBV to [address] [place] [address]. CONDITION: Guarded. TIME SPENT: Time spent on the patient is 60 minutes with 30 of that spent face- to- face. Candi Rodriguez, SCRAP [employer]NER [id number]/[facility] #: [id number] [facility]DEN[facility]AM HOSPITALDylan
[2019-07-10] MEDS ORDERED: Aspirin TAB* 325 MG PO ONE (08:09)
[2019-07-10] MEDS: Heparin VIAL(*) 5000 UNITS/ML VIAL (FIVE THOUSAND) SUBCUT SCH (08:33)
[2019-07-10] MEDS ORDERED: diPHENhydraMINE PO* 25 MG PO PRN (08:34)
[2019-07-10] MEDS ORDERED: Diazepam TAB(*) 5 MG PO PRN (08:34)
[2019-07-10] MEDS ORDERED: NS 0.9% 1000 ML** 1,000 ML IV SCH (08:45)
[2019-07-10] MEDS ORDERED: Chlorthalidone TAB* 50 MG PO SCH (09:00)
[2019-07-10] MEDS ORDERED: Aspirin EC TAB* 325 MG PO SCH ×2 (09:00)
[2019-07-10] MEDS ORDERED: Aspirin EC TAB* 81 MG TAB.EC PO SCH (09:00)
[2019-07-10] MEDS ORDERED: Ramipril CAP* 10 MG PO SCH (09:00)
[2019-07-10] MEDS ORDERED: Atorvastatin* 20 MG TAB PO SCH (09:00)
[2019-07-10 09:16] LABS: INR 1.03 (0.82-1.09)
--- NOTE | 2019-07-10 09:18 | ECHO ---
*[facility]* [place] [address] Fax #: [phone] Transthoracic Echocardiogram Patient: Romie Stratton : 1950 Study Date: 07/10/2019 Age: 68 Gender: M HR: 64 bpm Height: 67 in /170.2 cm BSA: 1.93 m^2 Weight: 179.6 lb /81.6 kg BMI: 28.2 kg/m^2 *Celluloid Trimmer: * Carmelina Portillo *Referring Physician: * Candi Rodriguez *Reading Physician: * Jovanny Javier MD Indications: Chest Pain, unspecified. History: Risk factors: Former tobacco use. Hypertension. Dyslipidemia. Family history is significant for coronary artery disease. Conclusions Summary: - Left ventricle: Systolic function is normal. The estimated ejection fraction is 55-60%. Wall motion is normal; there are no regional wall motion abnormalities. - Right ventricle: Systolic function is normal. - Atrial septum: No defect or patent foramen ovale is identified. - Mitral valve: There is trace to mild regurgitation. - Aortic valve: Transvalvular velocity is within the normal range. There is no evidence of stenosis. - Tricuspid valve: There is no significant regurgitation. - Pulmonary arteries: Systolic pressure can not be accurately estimated. - Study data: No prior study is available for comparison. Study data: Transthoracic echocardiogram. Procedure: Transthoracic echocardiography was performed. Image quality was good. Complete 2D, spectral Doppler, and color flow Doppler. Location: Bedside. Patient status: Inpatient. Patient room number: 441-02. No prior study is available for comparison. Study status: Routine. Rhythm: Normal sinus rhythm. Findings Left ventricle: The cavity size is normal. Wall thickness is at the upper limits of normal. Systolic function is normal. The estimated ejection fraction is 55-60%. Wall motion is normal; there are no regional wall motion abnormalities. Left ventricular diastolic function parameters are normal. Right ventricle: The cavity size is normal. Systolic function is normal. Ventricular septum: The ventricular septum is normal. Left atrium: The atrium is normal in size. Right atrium: The atrium is normal in size. Atrial septum: No defect or patent foramen ovale is identified. Mitral valve: Appears calcified. The leaflets are mildly thickened. No echocardiographic evidence for prolapse. There is no evidence of stenosis. There is trace to mild regurgitation. Aortic valve: The valve is structurally normal. The valve is trileaflet. Cusp separation is normal. Transvalvular velocity is within the normal range. There is no evidence of stenosis. There is no significant regurgitation. Tricuspid valve: The valve is structurally normal. There is no evidence of stenosis. There is no significant regurgitation. Pulmonic valve: The valve is structurally normal. There is no evidence of stenosis. There is trace regurgitation. Aorta: Aortic arch: The aortic arch is poorly visualized. The aortic root appears normal. Pericardium: There is no significant pericardial effusion. Pulmonary arteries: Systolic pressure can not be accurately estimated. Systemic veins: Inferior vena cava: The vessel is normal in size. There is (>= 50%) respiratory change in the IVC dimension. Pulmonary veins: The Pulmonary veins appear normal. Measurements Left ventricle Value Ref Right atrium continued Value Ref GAIL, LAX 4.3 cm 4.2 - 5.8 ML dim, ES, A4C 4.1 cm 2.6 - ESD, LAX 2.9 cm 2.5 - 4.0 4.4 FS, LAX 34 % 25 - 43 SI dim, ES, A4C 5.0 cm 3.4 - PW, ED, LAX (H) 1.2 cm 0.6 - 1.0 5.3 E', lat jacy, TDI (L) 7.7 cm/sec >=10.0 E/e', lat jacy, 9 Aortic valve Value Ref TDI Peak v, S 1.06 m/sec -------- VTI, S 24.0 cm -------- LVOT Value Ref Mean grad, S 3.0 mm Hg -------- Diam, S 2.00 cm Peak grad, S 4.0 mm Hg -------- Area 3.1 cm^2 LVOT/AV, VTI 0.83 -------- Peak pricilla, S 0.9 m/sec ratio VTI, S 19.9 cm ANDRIA, VTI 2.60 cm^2 -------- Peak grad, S 3 mm Hg ANDRIA, Vmax 2.67 cm^2 -------- Mean grad, S 2 mm Hg SV 62 ml Mitral valve Value Ref Peak E 0.68 m/sec -------- Ventricular septum Value Ref Peak A 0.67 m/sec -------- IVS, ED (H) 1.2 cm 0.6 - 1.0 Decel time 180 ms -------- Peak E/A ratio 1 -------- Right ventricle Value Ref GAIL, LAX 3.4 cm Pulmonic valve Value Ref GAIL minor ax, 3.5 cm 1.9 - 3.5 Peak v, S 0.45 m/sec -------- A4C mid Peak grad, S 1.0 mm Hg -------- Left atrium Value Ref Aortic root Value Ref AP dim, ES 3.40 cm 3.00 - Root diam 3.1 cm <4.1 4.00 ML dim, A4C 4.6 cm Ascending aorta Value Ref SI dim, A4C 5.4 cm AAo AP diam, S 3.0 cm -------- Vol/bsa, ES, 1-p 20 ml/m^2 12 - 37 A4C Inferior vena cava Value Ref Diam 2.3 cm -------- Right atrium Value Ref SI dim, ES 5.0 cm 3.4 - 5.3 Legend: (L) and (H) maria t values outside specified reference range. Prepared and electronically signed by Jovanny Javier MD 07/10/2019 09:18
[2019-07-10] MEDS ORDERED: Iohexol 350 (CONTRAST) 200 ML MDV IV ONE (10:00)
[2019-07-10] MEDS ORDERED: Heparin 2 UNITS/ML IVPREMIX* 2,000 ML IV ONE (10:00)
[2019-07-10] MEDS ORDERED: Lidocaine 1% INJ* 10 MG/ML 30 ML SDV ONE (10:00)
[2019-07-10] MEDS ORDERED: Midazolam* 1 MG/ML 5 ML VIAL (5 MG) ONE (10:08)
[2019-07-10] MEDS ORDERED: fentaNYL* 50 MCG/ML 2 ML VIAL (100 MCG VIAL) ONE (10:08)
[2019-07-10] MEDS ORDERED: Heparin(*) 1000 UNIT/ML 10 ML VIAL CATH LAB IV ONE (10:12)
[2019-07-10] MEDS ORDERED: nitroGLYCERIN DRIP* 25,000 MCG/250 ML BTL ONE (10:13)
[2019-07-10] MEDS ORDERED: VERAPAMIL 2.5 MG/ML 2 ML VIAL ** 5 mg/2 ml ONE (10:13)
--- NOTE | 2019-07-10 10:58 | CONS ---
CC: Dr. Salmeron* CARDIOLOGY CONSULTATION REPORT: DATE OF CONSULT: 07/10/19. PRIMARY CARE PHYSICIAN: Dr. Salmeron. ATTENDING PHYSICIAN: Dr. Jovanny Javier* (dictated by Tyra Liriano NP). CHIEF COMPLAINT: Chest pain. HISTORY OF PRESENT ILLNESS: This is a pleasant 42-year-old male patient with a notable history of hypercholesterolemia, hypertension, fatty liver infiltrates, extensive family history of premature coronary artery disease, who presented to the [facility] on 07/09/19 due to progressive chest pain. The patient states that he has in his usual state of health up until March 2019. He adds that he has been biking 15 miles a day for the past 10 to 15 years with no difficulty. He adds that in the beginning of March he started to notice decreased exercise capacity with exercise-induced substernal chest pain described burning in nature with associated dyspnea. He states episodes would typically resolve in recovery and only induced by activity, however, symptoms have accelerated in regards to the frequency and intensity since 06/27/19. The patient states that on 06/27/19, he had a Tele-Medicine visit with his primary doctor, Dr. Salmeron, who informed the patient that his symptomatology seems consistent with stable angina. He prescribed metoprolol 50 mg a day. The patient states since that time symptoms have accelerated in regards to intensity and also now occurring at lower levels of activity and at times while at rest. The patient adds that at rest, chest discomfort can be induced by inspiration not related to palpation and movement of torso. It is provoked by exercise as mentioned above. He denies dizziness, syncope, palpitations. The patient expresses concern because both of his brothers had myocardial infarctions prematurely at age 47 and 51. His father at the age of 51. His mother had a stroke at age 68. The patient opted for evaluation yesterday, 07/09/19 at the discretion of his primary after calling his primary and informing him he was developing chest pain now with rest. The patient reports compliance with metoprolol. He states that he has not noticed an improvement in symptomatology since being placed on metoprolol. Last ischemic evaluation was in 2005 via stress Myoview which was low-risk, EF 60%. There was inferior artifact, otherwise normal perfusion. PAST MEDICAL HISTORY: 1. Fatty liver infiltrates noted on prior Duplex. 2. Transaminitis. 3. Alcoholism. 4. Hypertension. 5. Hypercholesterolemia. 6. Family history of premature coronary artery disease. 7. Spontaneous pneumothorax in 1998. 8. Elevated hemoglobin A1c per the patient; last one in 6.1%. PAST SURGICAL HISTORY: Includes: 1. Liver biopsy due to progressive transaminitis after higher doses of statin. 2. Jaw surgery. ALLERGIES: Listed includes PENICILLIN, which causes paresthesia. Denies allergy to shellfish, contrast dye. FAMILY HISTORY: Father at age of 52 due to complications from bronchitis. Eldest brother had a myocardial infarction at age 47. Younger brother had a myocardial infarction at age 55. Mother had a stroke at age 68. SOCIAL HISTORY: The patient is a former tobacco user, quit 30 years ago. He consumes 4 to 6 shots of Dougherty a day. He utilizes marijuana on a regular basis. Denies any other drug use. He is semi-retired. Currently employed as a commercial real estate associate. He is single and lives at home alone. In regards to activity again, he typically bikes 15 miles a day, however, since March has had decreased exercise capacity with associated symptoms. REVIEW OF SYSTEMS: All systems have been reviewed and are otherwise negative except what was above mentioned in the HPI. PHYSICAL EXAM: Temperature is 97.5, pulse 65, respirations 18, oxygenation 94% on room air, blood pressure 154/97. General: The patient is resting upright in bed, appears in no apparent distress. He is cooperative with examination. HEENT: Head is atraumatic, normocephalic. Oral mucosa is moist. Tongue is midline. Neck: Supple. Trachea midline. No JVD. No carotid bruits. Cardiac : Normal S1, S2. Regular rate and rhythm. No murmur or gallop noted. Lungs: Auscultated posteriorly, no evidence of adventitious breath sounds. Respiration unlabored. Extremities: 3+ brachial pulse and palpated bilaterally and symmetrically 2+ dorsalis pedis pulses palpated bilaterally and symmetrically. Skin: Intact. No evidence of jaundice, rashes or ecchymosis appreciated. DIAGNOSTIC STUDIES/LAB DATA: Blood work reviewed from 07/09/19; white count is 7.6, hemoglobin 16.2, hematocrit 45, platelets 244. Sodium 134, potassium 3.5, creatinine 0.90, troponin negative x2. AST 40, ALT 54, LDL 74, triglycerides 284. ECG from 06/26/18, sinus rhythm, rate 74, no ST-segment depression, elevation appreciated. No T-wave inversion appreciated. ECG 07/10/19, sinus rhythm, rate 66 with new T-wave inversion noted in 3, AVF and 2. This appears new compared to prior EKG. Chest x-ray, 07/09/19, per Radiology report, no active cardiopulmonary disease. Echocardiogram pending. ASSESSMENT AND PLAN: 1. Typical greater than atypical complaints of progressive chest pain since March 2019. Upon further inquiry, it appears that the patient had reduced exercise capacity with associated exercise induced burning chest pain and dyspnea since March 2019 with acceleration of symptomatology in regards to frequency and duration since 06/27/19, not responding to beta anayeli therapy. The patient had also stated that he has been noticing resting episodes, however , resting episodes appeared to be related to inspiration. The patient is on aspirin, statin, and beta anayeli therapy. Risk factors include extensive family history of premature coronary artery disease, fatty liver disease, elevated hemoglobin A1c, hypertension, hyperlipidemia. The patient's cardiac enzymes were negative x2. He does have new inferior T-wave inversions noted on ECG compared to prior ECG from 2019. Given concern for unstable angina, the patient was offered left heart catheterization. I reviewed risks, indications with the patient which includes but is not limited to bleeding, infection, vessel damage, risk of contrast induced nephropathy, stroke, heart attack, , requirement of dual antiplatelet therapy with referral for bypass surgery. The patient is agreeable to proceeding. Consent will be obtained by rn occupational health, Dr. Jovanny Javier. 2. History of hypercholesterolemia, on Lipitor 20 mg a day, higher doses would cause further elevation in AST and ALT per the patient. LDL 74, triglycerides 284. The patient should follow up with primary for consideration of Vascepa therapy. 3. History of hypertension. Historically on lisinopril and chlorthalidone. The patient's blood pressure was elevated at 154/97. We will continue metoprolol therapy. Goal blood pressure less than 130/80 given history of elevated hemoglobin A1c. 4. History of alcoholism. The patient denies a history of withdrawal. He adds that he has never attempted to quit drinking. He reports consuming 4 to 6 shots of alcohol a day. I reviewed the importance of alcohol avoidance given history of fatty liver disease and transaminitis. The patient does not seem interested in quitting at this time. 5. Disposition: Pending course. The patient is a full code. Dr. Jovanny Javier has personally seen and examined the patient and agrees with the above assessment and plan. TYRA LIRIANO, REGIONAL SALES ENGINEER [id number]/CPS #: [id number] DANIEL
--- NOTE | 2019-07-10 11:48 | CATH ---
"*[facility]* [place] [address] Main: [phone] [email or web address] Cardiac Catheterization Patient: Romie Stratton : 1950 Study Date: 07/10/2019 Age: 68 Gender: M HR: Height: 67 in /170.2 cm BSA: 2 m^2 Weight: 183 lb /83.2 kg BMI: 28.7 kg/m^2 Linen Folder: Jovanny Javier MD Ordering Physician: Tyra Pavon Referring Physician: Jovanny Javier MD, Ashlin Thuman Ashlin, Thuman Ashlin, --- - Left coronary angiography. - Left heart catheterization. Summary: 1. Left main: Ostial lesion: There is a 75% stenosis. 2. LAD: Mid-vessel lesion: There is a 50% stenosis. 3. Right coronary: Ostial lesion: There is a 90% stenosis. 4. RV marginal 2: Lesion: There is a 100% stenosis. 5. RCA posterolateral extension: Lesion: There is a 90% stenosis. Recommendations: Patient with be referred for CABG at [facility]. History: Stable angina. Functional status: CCS class II (slight limitation of ordinary activity). Risk factors: Hypertension. Dyslipidemia. Family history is significant for coronary artery disease. Medications: The patient received antianginal therapy in the last two weeks, including: beta blockers. Labs, prior tests, procedures, and surgery: Blood tests: Troponin I (pre-procedure) of 0 ng/ml. International normalized ratio (INR) . Serum potassium (K) of 3.5 mEq/l. Serum sodium (Na) of 134 mEq/l. Serum creatinine (current admission) of 0.9 mg/dl. Blood urea nitrogen of 15 mg/dl. Glucose of 94 mg/dl. Platelet count of 244 th/ul. White blood cell count (WBC) of 0.01 th/ul. Red blood cell count (RBC) of 5120 th/ul. Hematocrit of 45 %. Hemoglobin (pre-procedure) of 16.2 g/dl. Study data: Study status: Cardiac cath: urgent. Location: Catheterization laboratory. Consent: The risks, benefits, and alternatives to the procedure were explained to the patient and/or their healthcare quality control representative and written informed consent was obtained. All available pre-procedure labs were reviewed. Height: 170.2 cm. 67 in. Weight: 83.2 kg. 183 lb. Body surface area: 2 m^2. Body mass index: 28.7 kg/m^2. Procedure: 1. Initial setup. The patient was brought to the laboratory. Surface ECG leads, blood pressure measurements, and pulse oximetric signals were monitored. A baseline seven lead ECG was recorded. A time out was observed per protocol. 2. Skin preparation. The planned puncture sites were prepped and draped in the usual sterile manner. 3. Local anesthesia. 1% lidocaine was administered. 4. Local anesthesia. 1% lidocaine (2 ml) was administered. 5. Supplemental oxygen. Oxygen, 2 L/min was administered throughout the procedure. 6. Right radial artery access. A 6F [place] Slender sheath was advanced into the vessel. 7. Selective left coronary angiography. A 5F TIG 4.0 catheter was advanced into the left coronary vessel ostium under fluoroscopic guidance. Contrast was injected. Images were obtained in multiple projections. 8. Left heart catheterization. A catheter was successfully advanced across the aortic valve to the left ventricle under fluoroscopic guidance. 9. Right radial artery hemostasis. Vessel closure was achieved with a Regular Vasc Band device. Hemostasis was successfully obtained. Study completion: Minimal estimated blood loss. All catheters inserted during the procedure were removed. There were no apparent complications. Administered medications: Aspirin, 324mg, PO. VERSED (Midazolam), 2mg, IV. Fentanyl, 25mcg, IV. (Radial) Nitroglycerin, 300mcg, intra-arterially. (Radial) Verapamil, 3mg, intra-arterially. (Radial) Heparin, 3,000units, intra-arterially. NaCl 0.9% , infusion , at a rate of 100 ml/hr. NaCl 0.9% , 250 ml , bolus. Contrast: Omnipaque 350 70 ml (total dose). Omnipaque 350 130 ml (wasted). Radiation: Fluoroscopy dose: 111.1 cGy. Discharge: The patient tolerated the procedure well and was discharged from the lab in stable condition. Findings Coronary arteries: The coronary circulation is right dominant. Left main: Mildly calcified. Ostial lesion: There is a 75% stenosis. LAD: Mildly calcified. Mid-vessel lesion: There is a 50% stenosis. Left circumflex: Right coronary: Moderately calcified. Ostial lesion: There is a 90% stenosis. RV marginal 2: Lesion: There is a 100% stenosis. Left to Right collaterals from LAD. RCA posterolateral extension: Lesion: There is a 90% stenosis. Hemodynamics: + + + |Stage description |Condition 1 - | + + + |LV pressure s/d, ed |99/20, 9, dP/sp=482 mm Hg/s| + + + |Arterial pressure s/d (m)|103/71 (86) | + + + Prepared and electronically signed by Jovanny Javier MD 07/10/2019 11:48"
[2019-07-10 14:57] VITALS: BP 114/77
--- NOTE | 2019-07-10 15:14 | TRS ---
DATE OF ADMISSION: 07/09/2019. DATE OF TRANSFER: 07/10/2019. PRIMARY DIAGNOSIS: 1. Chest pain secondary to unstable angina. 2. Significant coronary artery disease. SECONDARY DIAGNOSES: 1. Hypertension. 2. Hyperlipidemia. 3. Spontaneous pneumothorax. 4. Recurrent sinus infection. 5. Arthritis. PAST SURGICAL HISTORY: 1. Septoplasty and sinus surgery in 2002. 2. Right lung resection for bleb in 1989. 3. Lower jaw surgery in 1983. HOSPITAL COURSE: This is a 68-year-old male with a past medical history of hypertension, hyperlipidemia, and spontaneous pneumothorax who came into the emergency room on 07/09/2019 last night for worsening chest pain with exertion and shortness of breath triggered when he exercises. Please refer to the history and physical for full details. The patient was recently started on Metoprolol by his primary care doctor after a teleconsult last week for possible stable angina symptoms, but when he contacted his primary care doctor again with ongoing symptoms, he recommended that the patient come into the hospital for further evaluation. Initial troponin was 0.01. Cardiology was consulted and as the patient is noted to have multiple risk factors for coronary artery disease, it was decided to proceed with cardiac catheterization. Please refer to the consultation by Dr. Javier and Tyra Pavon NP for full cardiac evaluation. Of note, the patient's last ischemic evaluation prior to this was in 2005 with stress Myoview which was low risk ejection fraction of 60 percent. The patient was also noted to have T-wave inversions on current admission. The patient underwent cardiac catheterization this morning by Dr. Javier and the patient was noted to have significant triple vessel disease. The patient was noted to have an ostial lesion in the left main , 75 percent stenosis; LAD mid vessel lesion, 50 percent stenosis; right coronary ostial lesion, 90 percent stenosis; RV marginal 2 lesion, 100 percent stenosis; RCA posterolateral extension lesion at 90 percent stenosis. The case was discussed with Dr. Stern at [facility] who has kindly accepted the patient for CABG. Please refer to the cardiac catheterization report for full details. Vitals and labs noted to be stable at the time of discharge. LABORATORY DATA: WBC 7.6, hemoglobin 16.2, hematocrit 45, platelets noted to be 244; sodium 134, potassium 3.5, chloride 97, CO2 27, BUN 15, creatinine 0.9. PHYSICAL EXAMINATION: Vital Signs: Temperature 97.9, pulse 76, respiratory rate 16, oxygen saturation 96 percent on room air, blood pressure 146/85. HEENT : NC/AT. Heart: S1, S2 present, regular at the time of the exam. Lungs: Clear to auscultation. Abdomen: Soft. Extremities: No edema. Neuro: Alert and oriented times three. MEDICATIONS AT THE TIME OF TRANSFER: 1. Aspirin 81 mg p.o. daily. Patient received full dose aspirin here. 2. Lipitor 20 mg p.o. daily. 3. Chlorthalidone 12.5 mg p.o. q.a.m. 4. Metoprolol 25 mg p.o. daily. 5. Ramipril 10 mg p.o. daily. 6. The patient is on normal saline after the cardiac catheterization, to be stopped at 6:00 p.m. today. DIAGNOSTIC STUDIES: The patient also had an echocardiogram on 07/09/2019 which showed an ejection fraction of 55 to 60 percent, wall motion normal, no regional wall motion abnormality; aortic transvalvular velocity in normal range , no evidence of stenosis; pulmonary artery systolic pressure was not accurately estimated; mitral valve trace to mild regurg; RV systolic function normal. CONDITION: Stable for transfer. DISPOSITION: Transfer to another hospital/[facility] for CABG. INSTRUCTIONS: Further plans per [place] and the patient needs PCP and Cardiology follow-up after discharge. TIME SPENT: Total time spent on discharge is equal to 45 minutes. [id number]/CPS #: [id number] MTDD
[2019-07-11] MEDS ORDERED: Metoprolol Succinate XL TAB* 25 MG PO SCH (09:00)
[2019-07-11] MEDS ORDERED: Aspirin EC TAB* 81 MG TAB.EC PO SCH (09:00)
== END 2019-07-10 15:30 | disposition short-term general hospital (02) ==
LOC: ED 16:45 → MEDTELE 20:14
PROVIDERS: ADMIT Nurse Practitioner Adult Health; ATTEND Internal Medicine
DX: R07.9 Chest pain, unspecified (principal); R06.00 Dyspnea, unspecified; I10 Essential (primary) hypertension; J93.11 Primary spontaneous pneumothorax; J32.9 Chronic sinusitis, unspecified; M19.139 Post-traumatic osteoarthritis, unspecified wrist; E78.5 Hyperlipidemia, unspecified; K70.0 Alcoholic fatty liver; E78.00 Pure hypercholesterolemia, unspecified; F10.20 Alcohol dependence, uncomplicated; R94.31 Abnormal electrocardiogram [ECG] [EKG]; Z88.0 Allergy status to penicillin; Z87.891 Personal history of nicotine dependence; Z79.82 Long term (current) use of aspirin; Z79.899 Other long term (current) drug therapy; Z82.49 Family history of ischemic heart disease and other diseases of the circulatory system
CPT/HCPCS: 36415; 71045; 80053; 80061; 83036; 83880; 84484; 85025; 85610; 85730; 86850; 86900; 86901; 93005; 93306; 93458; 99156; 99157; 99284; A9270-GY; G0378; J1644; J2250; J3010